=== PATIENT | male | born 1955 | race Hispanic/Latino ===

== ENCOUNTER 2022-02-10 07:26 | Day surgery (SDC) | payer OTHER ==
[2022-02-02 12:18] LABS: BASOPHILS % (AUTO) 0.6 % (0.0-5.0); EOSINOPHILS % (AUTO) 4.4 % (0.0-8.0); HEMATOCRIT 39.8 % (42-54); LYMPHOCYTES % (AUTO) 28.5 % (21.0-51.0); MEAN CORPUSCULAR HEMOGLOBIN 29.5 pg (27.0-33.0); MEAN CORPUSCULAR HGB CONC 33.9 g/dL (32.0-36.0); MEAN CORPUSCULAR VOLUME 87.1 fL (79-99); MONOCYTES % (AUTO) 6.7 % (3.0-13.0); NEUTROPHILS % (AUTO) 59.3 % (40.0-77.0); PLATELET COUNT (AUTO) 259 K/uL (130-400); RED BLOOD CELL COUNT(AUTO) 4.57 MIL/uL (4.50-6.20); RED CELL DISTRIBUTION WIDTH 12.6 % (11.0-15.5); WHITE BLOOD COUNT (AUTO) 8.5 K/uL (4.8-10.8)
[2022-02-02 12:29] LABS: CREATININE 0.9 mg/dL (0.5-1.5)
[2022-02-02 12:30] LABS: INR 0.93 (0.85-1.15)
[2022-02-02 12:31] LABS: PARTIAL THROMBOPLASTIN TIME 28.2 SEC (26.3-35.5)
[2022-02-02 12:34] LABS: APPEARANCE,URINE CLEAR (CLEAR); BILIRUBIN,URINE NEGATIVE (NEGATIVE); COLOR,URINE LIGHT-YELLOW (YELLOW); GLUCOSE, URINE (UA) NEGATIVE (NEGATIVE); KETONES,URINE NEGATIVE (NEGATIVE); LEUKOCYTE ESTERASE ,URINE NEGATIVE Leu/uL (NEGATIVE); NITRATE,URINE NEGATIVE (NEGATIVE); PH,URINE 6.5 (5.0-8.0); PROTEIN,URINE NEGATIVE (NEGATIVE); UROBILINOGEN,URINE 0.2 mg/dL (0.2-1.0)
[2022-02-02 12:48] LABS: MUCUS,URINE RARE LPF (None Seen); SQUAMOUS EPITHELIAL CELL,UR RARE /HPF (0-2); WBC,URINE 0-1 /HPF (0-1)
[2022-02-03 08:52] VITALS: BP 180/95
[~2022-02-10] VITALS: Ht 170.2 cm; Wt 100.7 kg
[2022-02-10] VITALS (16 sets, daily range): BP systolic 124–146; BP diastolic 68–88
[~2022-02-10 07:26] MED LIST: BUPIVACAINE/PF 0.5% 10ML VIAL ONE; CALC0.5C11 PO; CALCIUM PO; LEVO200C2 PO; MAGNESIUM CITRATE PO; METF-445 PO; SIMV-43 PO
[2022-02-10] MEDS ORDERED: BUPIVACAINE/PF 0.5% 10ML VIAL IJ SCH (07:30)
[2022-02-10] MEDS ORDERED: CEFAZOLIN SODIUM 1 GM VIAL ONE ×2 (08:13→09:09)
[2022-02-10] MEDS ORDERED: 0.9%NACL 1000ML 1,000 ML IV ONE (08:13)
[2022-02-10] MEDS ORDERED: BUPIVACAINE/PF 0.5% 30ML VIAL INJ ONE (09:03)
[2022-02-10] MEDS ORDERED: PROPOFOL 10 MG/ML 20ML VIAL IV ONE (09:33)
[2022-02-10] MEDS ORDERED: SUCCINYLCHOLINE 200MG/10ML SYR ONE (09:33)
[2022-02-10] MEDS ORDERED: ROCURONIUM 10MG/1ML SYR 10 MG/ML ML ONE (09:33)
[2022-02-10] MEDS ORDERED: MIDAZOLAM HCL 1 MG/ML 2ML VIAL ONE (09:33)
[2022-02-10] MEDS ORDERED: ONDANSETRON 4MG INJ ONE (09:33)
[2022-02-10] MEDS ORDERED: FENTANYL CITRATE PF 50 MCG/1 ML 5ML AMP IV ONE (09:34)
[2022-02-10] MEDS ORDERED: LIDOCAINE PF 100MG/5ML (2%) SYRINGE 5ML ONE (09:53)
[2022-02-10] MEDS ORDERED: CEFAZOLIN SODIUM 3 GM VIAL IV ONE (10:00)
[2022-02-10] MEDS ORDERED: EPHEDRINE SULFATE 50 MG/ML AMPULE ONE (10:23)
[2022-02-10] MEDS ORDERED: MEPERIDINE-PF 25 MG/ML SYG ONE ×2 (10:29→11:31)
[2022-02-10] MEDS ORDERED: NEOSTIGMINE 5MG/5ML SYR IV ONE (10:51)
[2022-02-10] MEDS ORDERED: GLYCOPYRROLATE 1 MG/5 ML SYRINGE ONE (10:52)
== END 2022-02-10 13:08 | disposition home or self-care (01) ==
LOC: DAH 07:26
PROVIDERS: ATTEND Student in an Organized Health Care Education/Training Program
DX: K80.10 Calculus of gallbladder with chronic cholecystitis without obstruction (principal); E66.01 Morbid (severe) obesity due to excess calories; F17.200 Nicotine dependence, unspecified, uncomplicated; K21.9 Gastro-esophageal reflux disease without esophagitis; E11.42 Type 2 diabetes mellitus with diabetic polyneuropathy; M62.08 Separation of muscle (nontraumatic), other site; E03.9 Hypothyroidism, unspecified; F17.210 Nicotine dependence, cigarettes, uncomplicated; Z79.890 Hormone replacement therapy; Z79.84 Long term (current) use of oral hypoglycemic drugs; Z79.01 Long term (current) use of anticoagulants; Z79.899 Other long term (current) drug therapy; Z68.34 Body mass index [BMI] 34.0-34.9, adult
CPT/HCPCS: 80048; 85025; 85610; 85730; 87426 ×2; 81001; 36415; 93005; 47562; 82948 ×2; A6260; A4663; A6207; J7030 ×2; J0690 ×3; J3010; J0330; J3490 ×5; J2710; J2001; J2250; J2704; J2405; J2175 ×2; A6206; C1769 ×3; G0168; A4649 ×3; A5120; A4215; A4223; A4222; A4221; A4600

== ENCOUNTER 2025-02-26 09:42 | Emergency (ER) | payer OTHER ==
[~2025-02-26] VITALS: Ht 170.2 cm; Wt 95.7 kg
[~2025-02-26 09:42] MED LIST changes: -BUPIVACAINE/PF 0.5% 10ML VIAL ONE; -LEVO200C2 PO; +LEVO200C3 PO
[2025-02-26] MEDS ORDERED: CEPH500B PO (10:02)
[2025-02-26] MEDS ORDERED: LORA10TA7 PO (10:02)
--- NOTE | 2025-02-26 10:03 | ERN ---
General Chief Complaint: Animal Bite Stated Complaint: SENT BY PCP Time Seen by MD: 09:43 Source: patient History of Present Illness Initial Comments Patient is a 69-year-old male coming in complaining of left elbow insect bite. Per patient he called his PCP and told him about the tick bite in his left arm. PCP was concerned sent him in for further evaluation. Allergies: Coded Allergies: No Known Drug Allergies (Unverified Allergy, Unknown, 02/09/22) Home Meds Reported Medications [Magnesium Citrate] No Conflict Check, 1 APPL PO AD PRN for CONSTIPATION 02/09/22 [Calcium] No Conflict Check, 1 TAB PO AM 02/09/22 Calcitriol (Calcitriol) 0.5 Mcg Capsule, 0.5 MCG PO BID, CAP 02/09/22 Simvastatin (Simvastatin) 20 Mg Tablet, 20 MG PO HS, TAB 02/09/22 Metformin HCl (Metformin HCl) 850 Mg Tablet, 850 MG PO AM, TAB 02/09/22 Levothyroxine Sodium (Levothyroxine) 200 Mcg Capsule, 200 MCG PO AM, CAP 02/09/22 Past Medical History Past Medical History: Cancer, High Cholesterol Past Surgical History: Other Surgical History Other: NECK TUMOR REMOVAL ROS Dictation CONSTITUTIONAL: No chills, no fever, no weakness, no diaphoresis, no malaise. HEAD/FACE: No signs of trauma. EENT: No eye pain, no blurred vision, no tearing, no double vision, no ear pain, no ear discharge, no nose pain, no nasal congestion, no throat pain, no throat swelling, no mouth pain. RESPIRATORY: No cough, no orthopnea, no SOB, no stridor, no wheezing. CARDIOVASCULAR: No chest pain, no edema, no palpitations, no syncope. GASTROINTESTINAL/ABDOMINAL: No abdominal pain, no constipation, no diarrhea, no nausea, no vomiting. GENITOURINARY: No abnormal discharge, no dysuria, no frequent urination, no hematuria. No complaints of pain in the genitals. MUSCULOSKELETAL: No back pain, no gout, no joint pain, no joint swelling, no muscle pain, no muscle stiffness, no neck pain. INTEGUMENTARY: No change in color, no change in hair/nails, no dryness, no lesion, no lumps, rash. NEUROLOGICAL/PSYCH: No anxiety, not depressed, no emotional problem, no headache, no numbness, no pre-existing deficit, no history of seizures, no tremors, no weakness. HEMATOLOGIC/LYMPHATIC: Not anemic, no history of blood clots, no apparent bleeding, no bruising, glands not swollen. All Systems Negative, Except as Noted. Physical Exam Physical Exam Dictation VITAL SIGNS: Reviewed. GENERAL APPEARANCE: Alert, oriented x3, no acute distress, obese. HEAD AND FACE: Non-traumatic. EYES: PERRL, pink conjunctivas, eyelid no trauma, anterior chamber clear. EARS: Pinnas intact and no signs of trauma or erythema. Ear canals clear and no discharge. TMs no erythema. NOSE: No discharge, no bleeding. OROPHARYNX: Mouth normal, teeth no caries, tongue pink. Pharynx clear, no erythema. Tonsils no exudates, no abscesses noted. Mucous membrane moist. NECK: Supple, non-tender, no thyromegaly, no masses, no JVD, no bruits. BREAST: Deferred. CHEST: No tenderness, no crepitus, no paradoxical movement, no retractions. LUNGS: Clear, well-ventilated, symmetric, no rales, no wheezing, no rhonchi, no stridor, good breath sounds bilaterally. HEART: Regular rate, regular rhythm, no murmur, no gallops. VASCULAR: No peripheral edema. ABDOMEN: Soft, positive bowel sounds, nondistended, no guarding, nontender, no rebound, no masses no hepatomegaly, no splenomegaly, no Mccoy's sign, no hernias. RECTAL: Deferred. GENITAL: Deferred. NEUROLOGICAL: Normal speech, gross motor function intact, gross sensory function intact. MUSCULOSKELETAL: Neck nontender, full range of motion, back nontender, full range of motion. EXTREMITIES: Nontender, full range of motion. SKIN: Color pink, dry, no turgor, rash, no lacerations, no abrasions, no contusions. LYMPHATICS: Deferred. Results Laboratory and Microbiology Labs Reviewed?: Yes MDM MDM: Differential diagnosis: Tick bite, insect bite, abrasion, cellulitis, Rationale: Tests considered and ordered secondary to shared decision making include: Previous outside records reviewed: Old ER visits. Risk of complication and/or morbidity or mortality of patient management: None Medications-Per medication reconciliation Need for hospitalization: Patient does not meet criteria for hospitalization. Need for emergency major/minor surgery: No Patient is a 69-year-old male coming in complaining of left arm insect bite. Per patient he believes the tick might have bit him seven days ago. He did notify his PCP in PCP sent him in for further evaluation. On physical exam mild erythema of the left anterior elbow region. No bull's-eye lesion no rash noted no fever no chills. Patient will be discharged in stable condition with a diagnosis of cellulitis. Antibiotics will be provided as well as antihistamine. ED Course Vital Signs Date Time Temp Pulse Resp B/P (MAP) Pulse Ox O2 Delivery O2 Flow Rate FiO2 02/26/25 09:47 98.4 96 18 170/100 98 Room Air DX & DISP Disposition: Discharge Departure Impression: Primary Impression: Tick bite Additional Impression: Cellulitis Condition: Stable Scripts Loratadine (Loratadine) 10 Mg Tablet 1 TAB PO DAILY for allergy symptoms for 30 Days, #30 TAB 0 Refills Prov: DARINEL SALGADO MD 02/26/25 Cephalexin Monohydrate (Keflex) 500 Mg Cap 1 CAP PO TID for 10 Days, #30 CAP 0 Refills Prov: DARINEL SALGADO MD 02/26/25 Additional Instructions: FOLLOW-UP WITH PRIMARY CARE PROVIDER IN 1 TO 2 DAYS. TAKE MEDICATIONS DIRECTED HERE IN THE EMERGENCY ROOM. OKAY TO CONTINUE HOME MEDICATIONS UNLESS OTHERWISE DISCUSSED DURING YOUR VISIT IN THE EMERGENCY ROOM TODAY. RETURN TO YOUR NEAREST EMERGENCY ROOM IF SYMPTOMS WORSEN OR IF THERE IS NO IMPROVEMENT. CALL 911 IF YOU NEED IMMEDIATE ASSISTANCE. TAKE TYLENOL [id number] NEEDED AND IF NO CONTRAINDICATIONS ARE PRESENT. INCREASE ORAL HYDRATION. A WOUND CULTURE OR URINE CULTURE WAS ORDERED HERE IN THE EMERGENCY ROOM DEPARTMENT PLEASE FOLLOW-UP WITH PRIMARY CARE PROVIDER AND ADVISE THEM TO GET REPORTS FROM OUR FACILITY. IF YOU HAD ANY ALBERTO WRAP/SPLINTS THAT WERE APPLIED HERE, PLEASE DO NOT REMOVE THEM UNTIL YOU SEE YOUR PRIMARY CARE OR SPECIALTY. Referrals: Referrals: [facility] (PCP) Time of Disposition: 10:01 DARINEL SALGADO MD Feb 26, 2025 10:02
[2025-02-26 10:37] VITALS: BP 157/84; PULSE 90; RESP 18; TEMP 98.4; O2SAT 99
== END 2025-02-26 10:37 | disposition home or self-care (01) ==
LOC: EDH 09:42
DX: S50.362A Insect bite (nonvenomous) of left elbow, initial encounter (principal); L03.114 Cellulitis of left upper limb; E78.00 Pure hypercholesterolemia, unspecified; W57.XXXA Bitten or stung by nonvenomous insect and other nonvenomous arthropods, initial encounter; Y93.89 Activity, other specified; Y92.89 Other specified places as the place of occurrence of the external cause; Y99.8 Other external cause status
CPT/HCPCS: 99283; Q0163